=== PATIENT | female | born 1950 | race Caucasian/White ===

== ENCOUNTER → 2017-05-05 | Outpatient (CLI) | payer MEDICARE, BC ==
--- NOTE | ~2017-05-05 | MY29 ---
[facility] A Service of [facility] & [facility] RADIOLOGY TEXT RESULTS PATIENT: REJI PARADA LOCATION: [facility] : 48 UNIT #: [id number] AGE: [address]: Carolina Lechuga APRN SEX: F ORDER DR: [id number] [facility] [address] [place], [place] [address] [id number] O MR#: [id number] Acc #: [id number] NAME: REJI PARADA : 1950 SEX: F STUDY DATE/TIME: 05/05/2017 13:47 UNIT: [facility] ROOM: STUDY DESCRIPTION: MY HAZEL SCREENING W/ CAD BILAT Attending Physician: Carolina Lechuga A.P.R.N. Ordering Physician: Carolina Lechuga A.P.R.N. Primary Care Physician: Carolina Lechuga A.P.R.N. MEDICAL IMAGING REPORT This report is preliminary unless electronic signature is present EXAM Digital screening mammogram, 05/05/2017, [facility]. HISTORY 66-year-old woman, no risk elevation. Annual screen. COMPARISON MAMMOGRAMS Date to 02/19/2006, with most recent 01/31/2016. Follow up diagnostic left breast evaluation, 05/01/2016. FINDINGS Digital imaging of each breast was completed utilizing a two-view examination of each breast in craniocaudal and mediolateral-oblique projections. Review and interpretation of digital mammograms include a second review in conjunction with FDA-approved CAD device. There is a normal parenchymal presentation bilaterally consistent with the patient's age. There are no breast masses imaged and no parenchymal asymmetry is visualized. There are no suspicious microcalcifications and I see no focal architectural disturbance. IMPRESSION Negative screening digital mammogram. One-year followup recommended. Patients over the age of 40 are entered into a reminder system with target due date for the next mammogram. A result letter will also be sent to the patient. BIRADS: 1 Negative. ADDENDUM Breast parenchyma is fatty replaced. [facility] A Service of [facility] & [facility] RADIOLOGY TEXT RESULTS PATIENT: REJI PARADA LOCATION: [facility] : 48 UNIT #: [id number] AGE: [address]: Carolina Lechuga APRN SEX: F ORDER DR: Dictated by... Alvin Paredes M.D. THIS IS AN ELECTRONICALLY VERIFIED REPORT Alvin Paredes M.D. at 05/06/2017 8:08 AM JORGE/fabio TD: 05/05/2017 17:52 JOB #: [id number] MEDICAL IMAGING REPORT Page 1 of 1 COPY
== END | disposition home or self-care (01) ==
LOC: CWCC 13:19
DX: Z12.31 Encounter for screening mammogram for malignant neoplasm of breast (principal); R92.8 Other abnormal and inconclusive findings on diagnostic imaging of breast
CPT/HCPCS: G0202